=== PATIENT | male | born 1980 | race Caucasian/White ===

== ENCOUNTER 2017-03-12 16:06 | Emergency (ER) | payer MEDICAID ==
[~2017-03-12] VITALS: Ht 182.9 cm; Wt 72.6 kg
[~2017-03-12 16:06] MED LIST: HYDROCODON-ACE1 EA15 ORAL
[2017-03-12] MEDS ORDERED: Dexamethasone 4mg/ml vial IM ONE (17:30)
--- NOTE | 2017-03-12 17:37 | Emergency Room Report ---
History of Present Illness General Chief Complaint: Earache Source: Patient, Medical Record Present Illness HPI 36-year-old male presents to the emergency department complaining of 10 out of 10 in severity body-aches, bilateral ear pain and chills times one week. He reports swelling of the left cheek area x 1 day , no evidence of abscess.. niece was sick with URI coughing on him. denies recent travel and is UTD with vaccinations except for yearly flu.He denies neck pain, stiffness or photophobia. reports intermittent sore throat. Denies CP, Palpitations, LOC, AMS, dizziness, Changes in Vision, Sensation, paresthesias, or a sudden severe headache. Allergies: Coded Allergies: MIRTAZAPINE (Verified Allergy, Severe, Hives, 03/13/17) Patient History Past Medical History: see triage record Past Surgical History: none Pertinent Family History: none Social History: Reports: drug use - thc Immunizations: UTD Reviewed Nursing Documentation: PMH: Agreed, PSxH: Agreed Nursing Documentation-PMH Past Medical History: No History, Except For Hx Hypertension: Yes Hx Asthma: Yes Hx Gastrointestinal Problems: Yes Review of Systems All Other Systems: negative except mentioned in HPI Physical Exam Vital Signs Date Time Temp Pulse Resp B/P (MAP) Pulse Ox O2 Delivery O2 Flow Rate FiO2 03/12/17 16:27 98.1 78 18 125/73 96 Room Air Sp02 EP Interpretation: reviewed, normal General Appearance: no apparent distress, alert, GCS 15, non-toxic Head: normocephalic, atraumatic ENT: hearing grossly normal, normal pharynx, no angioedema, normal voice, other - no palpable fluctuance in the gum line or buccal inner cheek on bimanual exam. left sided ST swelling at the angle of the jaw/ left parotid area Neck: full range of motion, no meningismus, no bony tend, supple/symm/no masses Respiratory: lungs clear, normal breath sounds, speaking full sentences Cardiovascular #1: regular rate, rhythm Gastrointestinal: non tender, soft Rectal: deferred Musculoskeletal: back normal, gait/station normal, normal range of motion, non- tender Neurologic: alert, oriented x3, responsive, motor strength/tone normal, sensory intact, speech normal Skin: normal color, no rash, warm/dry, well hydrated Lymphatic: other - bilateral submandibular LAD Medical Decision Making PA Attestation Dr. osullivan is my supervising Physician whom patient management has been discussed with. Diagnostic Impression: Primary Impression: Parotitis ER Course 36-year-old male presents to the emergency department complaining of 10 out of 10 in severity body-aches, bilateral ear pain and chills times one week. He reports swelling of the left cheek area x 1 day , no evidence of abscess.. niece was sick with URI coughing on him. denies recent travel and is UTD with vaccinations except for yearly flu.He denies neck pain, stiffness or photophobia. reports intermittent sore throat. Denies CP, Palpitations, LOC, AMS, dizziness, Changes in Vision, Sensation, paresthesias, or a sudden severe headache. Ddx considered but are not limited to: pharyngitis, strep, FREIGHT COORDINATOR, ludwigs angina, URI , mumps, FREIGHT COORDINATOR, parotitis just to name a few. Vital signs: are WNL, pt. is afebrile H&PE are most consistent with: parotitis with viral syndrome and nasal congestion. ORDERS: None required at this time as the diagnosis is clinical ED INTERVENTIONS: -Decadron 8mg IM Tyelnol PO I do not feel palpable area of fluctuance and do not believe that this requires incision and drainage. Discussed with patient that he will be placed on antibiotics regardless and to return to the emergency department promptly with worsening or new symptoms. DISCHARGE: At this time pt. is stable for d/c to home. Will provide printed patient care instructions, and any necessary prescriptions. Care plan and follow up instructions have been discussed with the patient prior to discharge. Last Vital Signs Date Time Temp Pulse Resp B/P (MAP) Pulse Ox O2 Delivery O2 Flow Rate FiO2 03/12/17 16:27 98.1 78 18 125/73 96 Room Air Disposition: HOME, SELF-CARE Condition: Stable Scripts Loratadine/Pseudoephedrine (CLARITIN-D 12 HOUR TABLET) 1 Each Tab.er.12h 1 TAB ORAL EVERY 12 HOURS for 5 Days, #14 TAB Prov: Vane Dsouza P.A. 03/12/17 Acetaminophen* (TYLENOL EXTRA STRENGTH*) 500 Mg Tablet 500 MG ORAL Q6H Y for Mild Pain/Temp > 100.5, #20 TAB 0 Refills Prov: Vane Dsouza P.A. 03/12/17 Naproxen* (NAPROXEN*) 500 Mg Tablet. 500 MG ORAL TWICE A DAY for 10 Days, #20 TAB Prov: Vane Dsouza 03/12/17 Amoxicillin/Potassium Clav 875-125* (AUGMENTIN 875-125 TABLET*) 1 Each Tablet 1 TAB ORAL TWICE A DAY for 7 Days, #14 TAB Prov: Vane Dsouza 03/12/17 Referrals: NON PHYSICIAN (PCP) Patient Instructions: Parotitis Additional Instructions: Take medications as directed. Follow up with a Primary Care Provider in 3-5 days, even if your symptoms have resolved. --Please review list of primary care clinics, if you do not already have a primary care provider Return sooner to ED if new symptoms occur, or current symptoms become worse. - Please note that this Emergency Department Report was dictated using [employer] technology software, occasionally this can lead to erroneous entry secondary to interpretation by the dictation equipment. Vane Dsouza Mar 12, 2017 17:37
[2017-03-12] MEDS ORDERED: CLARITIN-D 121 EAC1 ORAL (17:39)
[2017-03-12] MEDS ORDERED: AUGMENTIN 875-1 EAC1 ORAL (17:39)
[2017-03-12] MEDS ORDERED: TYLENOL EXTRA500 MG ORAL (17:39)
[2017-03-12] MEDS ORDERED: NAPROXEN500 M1 ORAL (17:39)
[2017-03-12 18:00] VITALS: BP 125/76
== END 2017-03-12 18:00 | disposition home or self-care (01) ==
LOC: MERGE 17:29 → EMR 17:29
DX: K11.20 Sialoadenitis, unspecified (principal); J45.909 Unspecified asthma, uncomplicated; I10 Essential (primary) hypertension
CPT/HCPCS: 96372; 99284; J1100